=== PATIENT | male | born 1970 | race Hispanic/Latino ===

== ENCOUNTER 2017-05-24 15:15 | Emergency (ER) | payer SELFPAY ==
[~2017-05-24] VITALS: Ht 177.8 cm; Wt 76.5 kg
[2017-05-24] MEDS ORDERED: NAPROXEN500 MG PO (17:27)
[2017-05-24] MEDS ORDERED: MEDROL DOSEPAK4 MG PO (17:27)
[2017-05-24 18:12] VITALS: BP 152/94
== END 2017-05-24 18:16 | disposition home or self-care (01) ==
LOC: EME 15:15
DX: M71.22 Synovial cyst of popliteal space [Baker], left knee (principal); J35.1 Hypertrophy of tonsils; M79.662 Pain in left lower leg; R60.0 Localized edema; F17.200 Nicotine dependence, unspecified, uncomplicated
CPT/HCPCS: 93971; 99281; 99284